=== PATIENT | female | born 1955 | race Caucasian/White ===

== ENCOUNTER → 2016-10-22 | Outpatient (CLI) | payer OTHER ==
--- NOTE | 2016-10-22 15:56 | REPMRS ---
Patient History The patient states she had a clinical breast exam in Patient is postmenopausal. Family history of pancreatic cancer in father. Digital Woman Screen Mammo: October 22, 2016 - Exam #: [id number] Bilateral CC and MLO view(s) were taken. Technologist: Racheal Galloway, Technologist No prior studies available for comparison. FINDINGS: There are scattered fibroglandular densities. There is no evidence of dominant mass, architectural distortion, or clustered microcalcification typical of malignancy. ASSESSMENT: BI-RADS/ACR category 1 mammogram. Negative. Recommendation Routine screening mammogram of both breasts in 1 year (for women over age 40). This mammogram was interpreted with the aid of an FDA-approved computer-aided dectection system. Electronically Signed By: Norberto Mayen MD 10/22/16 [id number]
== END ==
LOC: M WHC 14:53
PROVIDERS: ATTEND Nurse Practitioner Family
DX: Z12.31 Encounter for screening mammogram for malignant neoplasm of breast (principal)

== ENCOUNTER → 2016-10-22 | Outpatient (REF) | payer OTHER | LOC: M SFHCWAGY 15:01 | PROVIDERS: ATTEND Nurse Practitioner Family | DX: Z12.4 Encounter for screening for malignant neoplasm of cervix (principal); N95.2 Postmenopausal atrophic vaginitis ==

== ENCOUNTER → 2017-09-18 | Outpatient (CLI) | payer OTHER | LOC: M LRY 16:49 | DX: S99.922A Unspecified injury of left foot, initial encounter (principal); X58.XXXA Exposure to other specified factors, initial encounter; Y92.89 Other specified places as the place of occurrence of the external cause | CPT/HCPCS: 73630 ==

== ENCOUNTER → 2018-11-07 | Outpatient (CLI) | payer OTHER ==
--- NOTE | 2018-11-11 16:07 | SLEEPHOME ---
DATE OF PROCEDURE: 11/07/2018 ORDERED BY: Ryan Turpin Diagnostic home sleep testing was performed due to concern for the obstructive sleep apnea syndrome in this patient with a history of chronic fatigue. For testing a nocturnal T3 respiratory monitoring device was used. Continuous record was made of pulse, oxygen saturation, airflow, chest, abdominal strain and body position. 9 hours and 59 minutes of data were reviewed. All 9 hours and 59 minutes were marked as time in bed and during the interval marked time in bed, there were 341 respiratory events identified of 10 seconds in duration or greater for a respiratory event index of 34.1. The events were primarily obstructive. Baseline pulse rate 62 beats per minute, pulse rate ranged from 31 to 86. Baseline saturation was 92%; that fell as low as 86%. Testing was performed in both the supine and nonsupine positions. IMPRESSION: Abnormal home sleep testing with repetitive respiratory events and oxygen desaturations to 86% with a respiratory event index of 34.1 is consistent with the obstructive sleep apnea syndrome. RECOMMENDATIONS: The patient should be encouraged to undergo a formal sleep evaluation and in laboratory pressure titration.
== END ==
LOC: M SLEEP HO 11-05 10:53
PROVIDERS: ATTEND Physician Assistant Medical
DX: G47.33 Obstructive sleep apnea (adult) (pediatric) (principal); R06.83 Snoring; R53.82 Chronic fatigue, unspecified

== ENCOUNTER → 2019-05-26 | Outpatient (CLI) | payer OTHER ==
--- NOTE | 2019-05-26 13:02 | REPMRS ---
Patient History The patient states she had a clinical breast exam in 05/2019. Patient is postmenopausal. Family history of pancreatic cancer in father. No Hormone Replacement Therapy 3D TOMOSYNTHESIS WAS PERFORMED. [facility] lifetime risk for breast cancer is 8.0%. Digital Woman Screen Mammo: May 26, 2019 - Exam #: [id number] Bilateral CC and MLO view(s) were taken. Technologist: Maddy Garnica, Technologist Prior study comparison: October 22, 2016, digital woman screen mammo performed at [facility]. FINDINGS: There are scattered fibroglandular densities. There has been no change in the appearance of the mammogram from the prior studies. There is a mild amount of residual fibroglandular tissue which is fairly symmetric. There is no interval development of dominant mass, architectural distortion, or clustered microcalcification suggestive of malignancy. Assessment: BI-RADS/ACR category 1 mammogram. Negative Mammogram. Recommendation Routine screening mammogram in 1 year (for women over age 40). This mammogram was interpreted with the aid of an FDA-approved computer-aided dectection system. Electronically Signed By: Mitchell Olson MD 05/26/19 [id number]
== END ==
LOC: M WHC 10:36
PROVIDERS: ATTEND Nurse Practitioner Family
DX: Z12.31 Encounter for screening mammogram for malignant neoplasm of breast (principal)

== ENCOUNTER → 2019-05-26 | Outpatient (REF) | payer OTHER ==
[~2019-05-26] MED LIST: FURO40TA2; METO50TA7; NORC1TAB7 PO; SIMV20TA22
[2019-05-28 14:07] LABS: HPV HYBRID CAPTURE II Negative (Negative)
== END ==
LOC: M SFHCWAGY 11:14
PROVIDERS: ATTEND Nurse Practitioner Family
DX: Z12.4 Encounter for screening for malignant neoplasm of cervix (principal); N95.2 Postmenopausal atrophic vaginitis
CPT/HCPCS: 87624; G0123

== ENCOUNTER → 2019-06-11 | Outpatient (CLI) | payer OTHER ==
--- NOTE | 2019-06-12 04:24 | REP ---
Clinical: Pelvic pain . Technique: Transabdominal pelvic ultrasound followed by transvaginal examination for better evaluation of the endometrium and adnexa with color Doppler evaluation of the ovaries. Findings: Bladder is unremarkable and measures 9.2 x 7.9 x 6.4 cm . Normal anteverted uterus measures 5.7 x 2.4 x 4.0 cm . The endometrial complex measures 2.7 mm thickness excluding small amount of endocervical fluid. No discrete uterine or endometrial abnormalities are appreciated. Right ovary measures 6.4 x 4.8 x 7.6 cm and includes 6.4 x 4.8 x 7.4 centimeter complex septated lesion ; R I = 0.82 . Left ovary measures 2.6 x 1.0 x 1.0 cm ; R I = not visualized . No pelvic fluid or adnexal mass lesion . Impression: 1. essentially normal uterus and left ovary. 2. A complex septated cystic lesion dominates the right ovary. Correlation and follow up recommended. Electronically Signed by Karel Rasheed MD 06/12/2019 04:15 A
== END ==
LOC: M RAD 16:50
PROVIDERS: ATTEND Nurse Practitioner Family
DX: R10.2 Pelvic and perineal pain (principal); N83.8 Other noninflammatory disorders of ovary, fallopian tube and broad ligament

== ENCOUNTER → 2019-06-17 | Outpatient (REF) | payer OTHER | LOC: M SFHCWAGY 14:47 | PROVIDERS: ATTEND Nurse Practitioner Family | DX: N83.201 Unspecified ovarian cyst, right side (principal) ==

== ENCOUNTER 2019-08-17 15:14 | Emergency (ER) | payer OTHER ==
[~2019-08-17] VITALS: Ht 154.9 cm; Wt 72.7 kg
[2019-08-17] MEDS ORDERED: METO50TA7 (15:21)
[2019-08-17] MEDS ORDERED: SIMV20TA22 (15:21)
[2019-08-17] MEDS ORDERED: FURO40TA2 (15:21)
--- NOTE | 2019-08-17 16:13 | REP ---
Clinical: Trauma. Fall. Technique: AP, lateral, bilateral oblique views of the left wrist. Findings: Colles' fracture of the distal radial metaphysis appreciated with overlying soft tissue swelling. Widening to the scapholunate joint space likely related to current trauma. Further evaluation of the carpal bones is somewhat limited. Impression: 1. Colles' fracture of the distal radial metaphysis. 2. Widening to the scapholunate joint. Electronically Signed by Karel Rasheed MD 08/17/2019 04:05 P
[2019-08-17] MEDS ORDERED: ACETAMINOPH W/CODEINE #3 TAB UD PO ONE (16:15)
[2019-08-17] MEDS ORDERED: NORC1TAB7 PO (18:03)
[2019-08-17 18:12] VITALS: BP 130/78
--- NOTE | 2019-08-19 21:00 | CR ---
DATE OF CONSULTATION: 08/17/2019 CHIEF COMPLAINT: Left wrist pain. This is a pleasant 64-year-old female that had a slip and fall at home and landed on an outstretched arm and immediately appreciated sharp 10/10 left wrist pain that is made worse with any sort of lifting, pushing, pulling or movement, alleviated with rest, immobilization and pain medication. The patient states she is right hand dominant. Denies any pain elsewhere. Denies any fevers, chills, nausea or vomiting. Complete 10-system review was conducted, pertinent positives and negatives in the history of present illness (HPI). All other systems negative. PAST MEDICAL HISTORY: High blood pressure, hyperlipidemia. MEDICATIONS: Metoprolol, Lasix, simvastatin, and multivitamins. No known drug allergies. PAST SURGICAL HISTORY: (C) section times two and tubal ligation along with bilateral hip replacements. SOCIAL HISTORY: The patient lives at home with her . Denies any smoking and significant alcohol use. PHYSICAL EXAMINATION: The patient is awake, alert, and oriented, well-dressed, appropriate affect. Breathing in room air. Normocephalic, atraumatic. Right upper extremity: No tenderness to palpation. Full active range of motion of the shoulder, wrist, and elbow without any pain or discomfort. Skin is intact. Radial pulse 2+, regular rate. Sensation intact to light touch, superficial sensory branches of the radial nerve, median nerve, and ulnar nerve. Positive anterior interosseous nerve (AIN), posterior interosseous nerve (PIN), and ulnar motor nerve functions. Left upper extremity: Diffuse swelling and ecchymosis about the wrist. Tender to palpation globally about the wrist. Pain with range of motion of the wrist. No tenderness to palpation about the elbow or shoulder. Skin is intact. Radial pulse 2+, regular rate. Positive AIN, PIN, and ulnar motor functions. Sensation intact to light touch, superficial sensory branches of the radial nerve, median nerve, and ulnar nerve. Bilateral lower extremities: No tenderness to palpation about the hips, knees or ankles. Able to ambulate without pain. Positive extensor hallucis longus (EHL), patella, tibia and gastroc motor functions. Sensation intact to light tough in superficial, perineal, deep perineal, sural, saphenous, and fibular distributions. Skin is intact. Posterior tibial pulses 2+, regular rate. 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 DIAGNOSIS: Left acute distal radius intraarticular fracture with dorsal displacement and chronic left slack deformity. I discussed with the patient that while she does have a distal radius fracture, I do not believe her acute. I believe this is a chronic issue from years in the past. The patient can not recall an injury. Either way, I think this is an acceptable alignment at this time. We will continue trial nonoperative. We will see her later this week for repeat x-rays to see how the fracture is moving. We will discuss further options at that time. With regards to her slack deformity, we will continue to see how this affects her long-term once the fracture is healed. If there are continuing troubles at that time, we will address them then. At this time, the patient is placed in a thumb spica splint. We will see the patient in the office later this week with repeat films, work on pain control, nonweightbearing at the affected extremity. The patient expressed understanding and agreement at this time.
== END 2019-08-17 18:12 | disposition home or self-care (01) ==
LOC: M ED 15:14
DX: S52.532A Colles' fracture of left radius, initial encounter for closed fracture (principal); S63.512A Sprain of carpal joint of left wrist, initial encounter; W01.0XXA Fall on same level from slipping, tripping and stumbling without subsequent striking against object, initial encounter; Y92.009 Unspecified place in unspecified non-institutional (private) residence as the place of occurrence of the external cause; Y93.E3 Activity, vacuuming; I10 Essential (primary) hypertension; E78.5 Hyperlipidemia, unspecified; Z79.899 Other long term (current) drug therapy; Z98.84 Bariatric surgery status

== ENCOUNTER → 2019-09-21 | Outpatient (REF) | payer OTHER ==
[~2019-09-21] MED LIST changes: +D 202000 PO; +FOLTTAB9 PO; +MULT1TAB7 PO
[2019-09-21 14:26] LABS: BASO % 0.6 % (0.0-1.0); EOS # 0.2 10^3/uL (0.0-0.5); EOS % 3.3 % (0.0-3.0); HEMOGLOBIN 12.8 g/dl (12.0-15.5); LYMPH # 2.4 10^3/uL (1.5-5.0); LYMPH % 37.6 % (24.0-44.0); MEAN CORPUSCULAR HEMOGLOBIN 29.8 pg (27.0-33.0); MEAN CORPUSCULAR VOLUME 93.2 fl (80.0-96.0); MONO # 0.6 10^3/uL (0.0-0.8); MONO % 8.8 % (0.0-5.0); NEUTROPHILS # 3.1 10^3/uL (1.5-8.5); NEUTROPHILS % 49.5 % (36.0-66.0); PLATELET COUNT, AUTOMATED 213 10^3/uL (150-450); RED BLOOD COUNT 4.29 10^6/uL (4.00-5.40); WHITE BLOOD COUNT 6.4 10^3/uL (4.0-10.0)
[2019-09-21 14:40] LABS: BILIRUBIN,TOTAL 0.6 MG/DL (0.2-1.0); CALCIUM LEVEL 8.9 MG/DL (8.8-10.2); CHOLESTEROL RISK RATIO 2.753 (<5); CREATININE FOR GFR 1.02 MG/DL (0.55-1.30); FREE T4 1.09 NG/DL (0.76-1.46); GLOMERULAR FILTRATION RATE 57.7 (>45); POTASSIUM SERUM 3.9 MEQ/L (3.5-5.1); THYROID STIMULATING HORMONE 3.63 uIU/ML (0.358-3.740); TOTAL PROTEIN 7.7 GM/DL (6.4-8.2)
== END ==
LOC: M LAB REF 12:11
PROVIDERS: ATTEND Physician Assistant Medical
DX: R53.83 Other fatigue (principal); I10 Essential (primary) hypertension; E78.2 Mixed hyperlipidemia

== ENCOUNTER 2019-10-02 08:19 | Day surgery (SDC) | payer OTHER ==
[~2019-10-02] VITALS: Ht 154.9 cm; Wt 71.2 kg
[~2019-10-02 08:19] MED LIST changes: +LIDOCAINE 2% INJ 100 MG/5 ML SDV (FOR ANES.) As Ordered ONE; +propofoL 200 MG/20 ML VIAL As Ordered ONE
[2019-10-02] MEDS ORDERED: NS 1,000 ML IV ONE (09:15)
--- NOTE | 2019-10-02 10:59 | ROOR ---
Patient Name: Yina Wiley Procedure Date: 10/02/2019 10:24 AM Date of : 1955 Age: 64 Room: [facility] Gender: Female Note Status: Finalized Procedure: Colonoscopy Indications: Screening for colorectal malignant neoplasm Providers: Jair HARRIS MD Referring MD: LESLEY Delatorre Requesting Provider: Medicines: Monitored Anesthesia Care Complications: No immediate complications. Procedure: Pre-Anesthesia Assessment: - The heart rate, respiratory rate, oxygen saturations, blood pressure, adequacy of pulmonary ventilation, and response to care were monitored throughout the procedure. The Colonoscope was introduced through the anus and advanced to the cecum, identified by appendiceal orifice and ileocecal valve. The colonoscopy was performed without difficulty. The patient tolerated the procedure well. The quality of the bowel preparation was good. Findings: The perianal and digital rectal examinations were normal. The ileocecal valve was moderately lipomatous. This was biopsied with a cold forceps for histology. (fat seen on biopsy) Mild sigmoid diverticulosis and small internal hemorrhoids. The exam was otherwise without abnormality on direct and retroflexion views. Impression: - Lipomatous ileocecal valve. Biopsied. - Mild sigmoid diverticulosis and small internal hemorrhoids. - The examination was otherwise normal on direct and retroflexion views. Recommendation: - Await pathology results. - Telephone endoscopist for pathology results in 2 weeks. - Repeat colonoscopy for surveillance based on pathology results. Jair Harris MD Jair HARRIS MD 10/02/2019 10:59:28 AM Electronically signed by Jair HARRIS MD Number of Addenda: 0 Note Initiated On: 10/02/2019 10:24 AM Estimated Blood Loss: Estimated blood loss: none.
[2019-10-02 11:20] VITALS: BP 139/63
== END 2019-10-02 11:33 | disposition home or self-care (01) ==
LOC: M OPP 08:19
PROVIDERS: ATTEND Internal Medicine Gastroenterology
DX: Z12.11 Encounter for screening for malignant neoplasm of colon (principal); K63.89 Other specified diseases of intestine; K57.30 Diverticulosis of large intestine without perforation or abscess without bleeding; K64.8 Other hemorrhoids; Z79.899 Other long term (current) drug therapy; Z98.84 Bariatric surgery status

== ENCOUNTER 2019-10-29 05:48 | Day surgery (SDC) | payer OTHER ==
[~2019-10-29] VITALS: Ht 154.9 cm; Wt 71.7 kg
[~2019-10-29 05:48] MED LIST changes: +B-122500 PO; -FURO40TA2; +FURO40TA2 PO; -LIDOCAINE 2% INJ 100 MG/5 ML SDV (FOR ANES.) As Ordered ONE; -METO50TA7; +METO50TA7 PO; -SIMV20TA22; +SIMV20TA22 PO; +VITAD1000T PO; -propofoL 200 MG/20 ML VIAL As Ordered ONE
[2019-10-29] MEDS ORDERED: LIDOCAINE 1% MDV 20ML VIAL SQ PRN (06:00)
[2019-10-29] MEDS ORDERED: LR 1,000 ML IV ONE (06:00)
[2019-10-29] MEDS ORDERED: ROCURONIUM BROMIDE 50 MG/5 ML VIAL As Ordered ONE (07:57)
[2019-10-29] MEDS ORDERED: SUGAMMADEX SODIUM 500 MG/5 ML VIAL (BRIDION) As Ordered ONE (07:57)
[2019-10-29] MEDS ORDERED: propofoL 200 MG/20 ML VIAL As Ordered ONE (07:57)
[2019-10-29] MEDS ORDERED: dexameTHASONE 4 MG/ML 1ML VIAL (J1100) As Ordered ONE (07:57)
[2019-10-29] MEDS ORDERED: LIDOCAINE 2% INJ 100 MG/5 ML SDV (FOR ANES.) As Ordered ONE (07:57)
[2019-10-29] MEDS ORDERED: ONDANSETRON 4MG/2ML VIAL (J2405) As Ordered ONE (07:57)
[2019-10-29] MEDS ORDERED: MIDAZOLAM INJ 2 MG/2 ML VIAL (J2250) As Ordered ONE (07:57)
[2019-10-29] MEDS ORDERED: fentaNYL 250 MCG/5 ML INJECTION (J3010) As Ordered ONE (07:57)
[2019-10-29] MEDS ORDERED: ePHEDrine SULFATE 25 MG/5 ML(5MG/ML) SYRINGE As Ordered ONE (08:00)
[2019-10-29] MEDS ORDERED: PERCOCET 5MG/325MG TAB PO PRN (09:45)
[2019-10-29] MEDS ORDERED: METOCLOPRAMIDE INJ 10MG/2ML VIAL (J2765) IV PRN (09:45)
[2019-10-29] MEDS ORDERED: LR 1,000 ML IV SCH ×2 (09:45→10:46)
[2019-10-29] MEDS ORDERED: fentaNYL 100 MCG/2 ML INJECTION (J3010) IV PRN (09:45)
[2019-10-29] MEDS ORDERED: ONDANSETRON 4MG/2ML VIAL (J2405) IV PRN (09:45)
[2019-10-29] MEDS ORDERED: KETOROLAC 60 MG/2 ML VIAL (J1885) As Ordered ONE (10:07)
[2019-10-29] MEDS ORDERED: IBUPROFEN 600 MG TAB PO PRN (10:46)
[2019-10-29] MEDS ORDERED: NORCO, ANEXSIA 5/325MG TABLET (HYDROcodone/ACETAMINOPHEN) PO PRN (10:46)
[2019-10-29 10:50] VITALS: BP 170/82
--- NOTE | 2019-10-30 18:43 | RO ---
DATE OF PROCEDURE: 10/29/2019 PREOPERATIVE DIAGNOSIS: Right ovarian cyst, thickened endometrium by ultrasound. POSTOPERATIVE DIAGNOSIS: Right ovarian cyst, thickened endometrium by ultrasound. Atrophic endometrium; there were really no lesions there. PROCEDURE: Laparoscopic bilateral salpingo-oophorectomy, hysteroscopy, and dilation and curettage. SURGEON: Dr. Anna Morris CUT OFF SAWYER SHINGLE MILL: None. ANESTHESIA: General endotracheal anesthesia. SPECIMENS: We sent the ovaries, the tubal remnants, and I think there is a Falope ring in with that, as well as endometrial curettings. There is very scant return on those curettings, but as documented in the operative photos, that is because the endometrium was quite atrophic and there were no lesions. DESCRIPTION OF PROCEDURE: Yina was brought to the operating room where sufficient general endotracheal anesthesia was induced, and she was prepped, draped and positioned in the usual sterile fashion. A uterine manipulator was placed after the uterus was sounded to 5-1/2 in this 64-year-old woman. She does have a little bit of prolapse. This is not news to the patient or to me. The bladder was, of course, emptied and the uterine manipulator placed, and then attention was turned to the abdomen. A transverse semilunar incision was made below the umbilicus. Sharp and blunt dissection were continued through the subcutaneous tissues to the level of the rectus fascia, which was grasped with Nisreen clamps and incised under direct visualization, and elevated to wound so that we could transversely incise and secure it with the #0 Vicryl retention sutures, and then enter the peritoneum under direct visualization in an open laparoscopic technique. The Mai cannula was then placed and CO2 insufflation then begun. After adequate CO2 insufflation, the peritoneal cavity was visualized. There were normal shiny peritoneal surfaces throughout. There was no excrescence, ascites, nor exudate. As noted in the operative photos, there was a minimum of adhesions despite the patient's previous surgical history, and there was some scarring of the tubes and Falope ring visible but this is expected in this patient. Then, on the right ovary, there was an enlarged serous appearing cyst. Went ahead and placed the 5 mm right lower quadrant port so we could elevate the cyst away from the bowel and then used the Enseal bipolar dissector to carefully dissect through the infundibulopelvic ligament on the right side and the utero-ovarian suspensory ligament on the right side, and then the mesentery of the tube and ovary freeing that enlarged right ovary. We then turned our attention to the left side where she had an atrophic postmenopausal appearing ovary and this too was elevated away from the bowel, carefully controlled the blood supply at the infundibulopelvic ligament and then at the utero-ovarian suspensory ligament. And then carefully completed that dissection, freeing the ovary and tube, tubal remnant on the left side as well. Again, photos were taken to document the operative course. We then placed an Endo Catch bag through the umbilical port and transferred the camera to a 5 mm camera through the right lower quadrant port, and used the Endo Catch bag to scoop up these two ovaries and tubes. We then drained the ovary and cyst. It was septated, so two segments were drained with clear to yellowish serous fluid removed, very benign in appearance. Again, photos were taken to document this course. Then, after drainage of the cyst, we placed both ovaries with their attached tubal remnants into an Endo Catch bag and removed it out the umbilical port. Photos were then taken to confirm good hemostasis at the sites of dissection and the CO2 was allowed to escape the abdomen. There was good hemostasis even under low pressure. We then removed the instruments, allowed all the CO2 we could to escape the abdomen, and closed the fascial wound at the umbilicus with the #0 Vicryl retention sutures, and closed the skin at both wounds with #3-0 Vicryl in a subcuticular stitch. Dry sterile dressings were then applied. Attention was then turned to the pelvis. With the uterine manipulator removed, we placed the MyoSure hysteroscope and took several pictures of the atrophic endometrium. We had the MyoSure device set up with the expectation of something to sample, but there was such a degree of clear atrophy and no polyps, no lesions, no atypical appearance whatsoever, a tiny bit of bruising where the manipulator had been, but nothing else. And so simple curettage was carried out. I tried to do aggressive curettage; as expected, there was very scant return of tissue, but this is consistent with the atrophic appearance. And after the curettage and the hysteroscopy, the procedure was ended. Estimated blood loss for the whole procedure: About 5 mL. Fluid replacement: Crystalloid. Complications: None. Condition and Disposition: Yina tolerated the procedure well and was recovering in the recovery room in good condition.
== END 2019-10-29 11:13 | disposition home or self-care (01) ==
LOC: M SDC 05:48
PROVIDERS: ATTEND Obstetrics & Gynecology
DX: N83.201 Unspecified ovarian cyst, right side (principal); R93.89 Abnormal findings on diagnostic imaging of other specified body structures; N85.8 Other specified noninflammatory disorders of uterus; I10 Essential (primary) hypertension; E78.5 Hyperlipidemia, unspecified; Z79.899 Other long term (current) drug therapy; Z98.84 Bariatric surgery status
CPT/HCPCS: 58558; 58661; 88108; 88305; 88307; J1100; J1885; J2250; J2405; J3010

== ENCOUNTER → 2022-03-07 | Outpatient (CLI) | payer OTHER ==
[~2022-03-07] MED LIST changes: +VITA100093 PO; -VITAD1000T PO
== END ==
LOC: M SLEEP 20:00
PROVIDERS: ATTEND Nurse Practitioner Family
DX: G47.33 Obstructive sleep apnea (adult) (pediatric) (principal)

== ENCOUNTER → 2022-06-12 | Outpatient (CLI) | payer OTHER | LOC: M SLEEP 20:00 | PROVIDERS: ATTEND Nurse Practitioner Family | DX: G47.33 Obstructive sleep apnea (adult) (pediatric) (principal) ==

== ENCOUNTER → 2022-09-04 | Outpatient (CLI) | payer OTHER | LOC: M WHC 12:54 | PROVIDERS: ATTEND Obstetrics & Gynecology | DX: Z12.31 Encounter for screening mammogram for malignant neoplasm of breast (principal) ==

== ENCOUNTER 2023-09-19 06:36 | Inpatient (IN) | payer OTHER ==
[~2023-09-19] VITALS: Ht 154.9 cm; Wt 76.6 kg
[2023-09-19 07:10] LABS: BASO # 0.1 10^3/uL (0.0-0.2); BASO % 1.4 % (0.0-1.0); EOS # 0.5 10^3/uL (0.0-0.5); EOS % 10.8 % (0.0-3.0); HEMATOCRIT 38.2 % (36.0-47.0); HEMOGLOBIN 13.1 g/dl (12.0-15.5); LYMPH # 1.9 10^3/uL (1.5-5.0); LYMPH % 38.4 % (24.0-44.0); MEAN CORPUSCULAR HEMOGLOBIN 30.3 pg (27.0-33.0); MEAN CORPUSCULAR HGB CONC 34.3 g/dl (32.0-36.5); MEAN CORPUSCULAR VOLUME 88.4 fl (80.0-96.0); MONO # 0.4 10^3/uL (0.0-0.8); MONO % 8.8 % (2.0-8.0); NEUTROPHILS % 40.4 % (36.0-66.0); PLATELET COUNT, AUTOMATED 252 10^3/uL (150-450); RED BLOOD COUNT 4.32 10^6/uL (4.00-5.40); WHITE BLOOD COUNT 4.9 10^3/uL (4.0-10.0)
[2023-09-19 07:15] LABS: INR 1.07; PROTHROMBIN TIME 13.6 SECONDS (12.5-14.5)
[2023-09-19 07:16] LABS: PARTIAL THROMBOPLASTIN TIME 26.6 SECONDS (24.8-34.2)
[2023-09-19] MEDS: HYDROMORPHONE HCL 0.5 MG/ 0.5 ML SYRINGE IV PRN ×4 (08:06→19:37)
[2023-09-19] MEDS ORDERED: NS 1,000 ML IV SCH (08:10)
[2023-09-19] MEDS ORDERED: MED REC IN PROGRESS XX SCH (08:50)
[2023-09-19 08:54] LABS: BLOOD UREA NITROGEN 8 MG/DL (9-23); CALCIUM LEVEL 7.9 MG/DL (8.3-10.6); CARBON DIOXIDE LEVEL 25 MMOL/L (20-31); CHLORIDE LEVEL 100 MMOL/L (98-107); CREATININE FOR GFR 0.65 MG/DL (0.55-1.30); GLOMERULAR FILTRATION RATE > 60.0 (>39); GLUCOSE, FASTING 116 MG/DL (74-106); SODIUM LEVEL 133 MMOL/L (136-145)
[2023-09-19] MEDS ORDERED: SIMV40TA20 PO (09:45)
[2023-09-19] MEDS ORDERED: HOME MED LIST COMPLETE! XX SCH (09:55)
[2023-09-19 10:20] VITALS: BP 161/87; TEMP 97.2; O2SAT 97
[2023-09-19] MEDS: MORPHINE 4 MG/ML 1ML VIAL IV PRN ×2 (12:06→15:16)
[2023-09-19] MEDS: METOPROLOL TART 50 MG TAB PO SCH (14:30)
[2023-09-19 16:49] VITALS: BP 168/88; TEMP 98.8; O2SAT 96
[2023-09-19] MEDS ORDERED: KETAMINE HCL 200MG/20ML VIAL As Ordered ONE (17:54)
[2023-09-19] MEDS ORDERED: MIDAZOLAM INJ 2MG/2ML VIAL As Ordered ONE (17:54)
[2023-09-19] MEDS ORDERED: LABETALOL 100MG/20ML VIAL As Ordered ONE (17:54)
[2023-09-19] MEDS ORDERED: propofoL 200 MG/20 ML VIAL As Ordered ONE (17:54)
[2023-09-19] MEDS ORDERED: fentaNYL 100 MCG/2 ML INJECTION As Ordered ONE (17:54)
[2023-09-19] MEDS ORDERED: ONDANSETRON 4MG 2ML VIAL As Ordered ONE (17:54)
[2023-09-19] MEDS ORDERED: LIDOCAINE 2% 100MG/5ML SDV (FOR ANES.) As Ordered ONE (17:54)
[2023-09-19] MEDS ORDERED: oxyCODONE 5MG TAB PO PRN (17:55)
[2023-09-19] MEDS ORDERED: LR 1,000 ML IV SCH (17:55)
[2023-09-19] MEDS ORDERED: fentaNYL 100 MCG/2 ML INJECTION IV PRN (17:55)
[2023-09-19] MEDS ORDERED: ONDANSETRON 4MG 2ML VIAL IV PRN (17:55)
[2023-09-19] MEDS ORDERED: LABETALOL 100MG/20ML VIAL IV PRN (18:25)
[2023-09-19 20:39] VITALS: BP 137/79; TEMP 97.5; O2SAT 96
[2023-09-19] MEDS ORDERED: SIMVASTATIN 40 MG TAB PO SCH (21:00)
[2023-09-19 21:15] VITALS: BP 140/68; TEMP 97; O2SAT 97
[2023-09-19 22:12] VITALS: BP 141/62; TEMP 97.6; O2SAT 97
[2023-09-19 23:12] VITALS: BP 139/62; TEMP 97.8; O2SAT 97
[2023-09-20] VITALS (8 sets, daily range): BP systolic 123–166; BP diastolic 52–77; TEMP 97–97.8; O2SAT 95–98
[2023-09-20] MEDS: MORPHINE 4 MG/ML 1ML VIAL IV PRN ×2 (08:41→11:47)
[2023-09-20] MEDS: METOPROLOL TART 50 MG TAB PO SCH (08:43)
[2023-09-20] MEDS ORDERED: FUROSEMIDE 40 MG TAB PO SCH (09:00)
[2023-09-20] MEDS ORDERED: IBUP-1022 PO (09:21)
[2023-09-20] MEDS ORDERED: OXYC-517 PO (11:55)
[2023-09-20] MEDS ORDERED: oxyCODONE 5MG TAB PO ONE (12:15)
== END 2023-09-20 14:05 | disposition home or self-care (01) | DRG 561 ==
LOC: M ED 06:36 → M ED INP 08:24 → M MS5PR 10:10
PROVIDERS: ADMIT Internal Medicine Nephrology; ATTEND Internal Medicine Nephrology
PROC: 2W3KX1Z Immobilization of Left Finger using Splint (ICD-10-PCS; principal; 2023-09-19 16:00)
PROC: 0SSBXZZ Reposition Left Hip Joint, External Approach (ICD-10-PCS; 2023-09-20)
DX: T84.021A Dislocation of internal left hip prosthesis, initial encounter (principal); S62.325A Displaced fracture of shaft of fourth metacarpal bone, left hand, initial encounter for closed fracture; I10 Essential (primary) hypertension; E66.9 Obesity, unspecified; G47.33 Obstructive sleep apnea (adult) (pediatric); W01.0XXA Fall on same level from slipping, tripping and stumbling without subsequent striking against object, initial encounter; Y92.009 Unspecified place in unspecified non-institutional (private) residence as the place of occurrence of the external cause; E78.5 Hyperlipidemia, unspecified; Z98.84 Bariatric surgery status; Z90.79 Acquired absence of other genital organ(s); Z79.899 Other long term (current) drug therapy; Z20.822 Contact with and (suspected) exposure to COVID-19; Z96.643 Presence of artificial hip joint, bilateral; Z96.651 Presence of right artificial knee joint

== ENCOUNTER → 2023-10-14 | Outpatient (CLI) | payer OTHER ==
[~2023-10-14] MED LIST changes: +IBUP-1022 PO; +OXYC-517 PO; +SIMV40TA20 PO
== END ==
LOC: M SOG 08:04
PROVIDERS: ATTEND Physician Assistant
DX: S62.395A Other fracture of fourth metacarpal bone, left hand, initial encounter for closed fracture (principal); Y93.9 Activity, unspecified; Y92.9 Unspecified place or not applicable

== ENCOUNTER → 2023-10-28 | Outpatient (CLI) | payer OTHER | LOC: M SOG 07:53 | PROVIDERS: ATTEND Physician Assistant | DX: S62.395A Other fracture of fourth metacarpal bone, left hand, initial encounter for closed fracture (principal); X58.XXXA Exposure to other specified factors, initial encounter; Y92.9 Unspecified place or not applicable ==

== ENCOUNTER → 2023-11-12 | Outpatient (CLI) | payer OTHER ==
[2023-11-12 14:09] LABS: ALBUMIN 3.6 G/DL (3.2-5.2)
[2023-11-12 14:14] LABS: BASO # 0.1 10^3/uL (0.0-0.2); EOS # 0.1 10^3/uL (0.0-0.5); EOS % 2.8 % (0.0-3.0); HEMATOCRIT 38.3 % (36.0-47.0); HEMOGLOBIN 12.9 g/dl (12.0-15.5); LYMPH # 2.3 10^3/uL (1.5-5.0); LYMPH % 46.2 % (24.0-44.0); MEAN CORPUSCULAR HEMOGLOBIN 30.4 pg (27.0-33.0); MEAN CORPUSCULAR HGB CONC 33.7 g/dl (32.0-36.5); MEAN CORPUSCULAR VOLUME 90.1 fl (80.0-96.0); MONO # 0.6 10^3/uL (0.0-0.8); NEUTROPHILS # 1.9 10^3/uL (1.5-8.5); NEUTROPHILS % 37.8 % (36.0-66.0); PLATELET COUNT, AUTOMATED 244 10^3/uL (150-450); RED BLOOD COUNT 4.25 10^6/uL (4.00-5.40)
[2023-11-12 14:17] LABS: PERCENT SATURATION 22.8 % (13.2-45.0)
[2023-11-12 14:18] LABS: FERRITIN 46.6 NG/ML (7.3-270.7)
== END ==
LOC: M PLALAB 10:35
PROVIDERS: ATTEND Orthopaedic Surgery
DX: M16.12 Unilateral primary osteoarthritis, left hip (principal); M25.552 Pain in left hip

== ENCOUNTER → 2024-10-15 | Outpatient (CLI) | payer OTHER ==
[2024-10-15 14:39] LABS: HEMATOCRIT 39.4 % (36.0-47.0); HEMOGLOBIN 13.3 g/dl (12.0-15.5); MEAN CORPUSCULAR HEMOGLOBIN 31.7 pg (27.0-33.0); MEAN CORPUSCULAR HGB CONC 33.8 g/dl (32.0-36.5); MEAN CORPUSCULAR VOLUME 93.8 fl (80.0-96.0); PLATELET COUNT, AUTOMATED 294 10^3/uL (150-450); WHITE BLOOD COUNT 4.6 10^3/uL (4.0-10.0)
[2024-10-15 14:43] LABS: TOTAL IRON BINDING CAPACITY 318 UG/DL (250-425)
[2024-10-15 14:44] LABS: ALKALINE PHOSPHATASE 95 U/L (35-104); ALT/SGPT 22 U/L (7.0-40); AST/SGOT 22 U/L (<34); BILIRUBIN,TOTAL 0.6 MG/DL (0.3-1.2); BLOOD UREA NITROGEN 11 MG/DL (9-23); CALCIUM LEVEL 9.6 MG/DL (8.3-10.6); CARBON DIOXIDE LEVEL 26 MMOL/L (20-31); CHLORIDE LEVEL 104 MMOL/L (98-107); CHOLESTEROL LEVEL 185 MG/DL (<200); CHOLESTEROL RISK RATIO 2.44 (<5); CREATININE FOR GFR 0.75 MG/DL (0.55-1.30); GLOMERULAR FILTRATION RATE > 60.0 (>39); GLUCOSE, FASTING 86 MG/DL (74-106); HDL CHOLESTEROL 75.8 MG/DL (>40); IRON (FE) 85 UG/DL (50-170); NON-HDL-C 109.2 MG/DL; PERCENT SATURATION 26.7 % (13.2-45.0); SODIUM LEVEL 138 MMOL/L (136-145); TOTAL PROTEIN 7.4 G/DL (5.7-8.2); TRIGLYCERIDES LEVEL 91 MG/DL (<150)
[2024-10-15 14:48] LABS: FERRITIN 46.4 NG/ML (7.3-270.7)
[2024-10-15 14:49] LABS: TOTAL 25(OH) VITAMIN D 60.5 NG/ML (20.0-100.0)
== END ==
LOC: M PLALAB 10:04
PROVIDERS: ATTEND Nurse Practitioner Adult Health
DX: I10 Essential (primary) hypertension (principal)

== ENCOUNTER → 2025-07-20 | Outpatient (CLI) | payer OTHER ==
[~2025-07-20] MED LIST changes: -IBUP-1022 PO; +IBUP600T42 PO
== END ==
LOC: M WHC 12:14
PROVIDERS: ATTEND Obstetrics & Gynecology
DX: Z12.31 Encounter for screening mammogram for malignant neoplasm of breast (principal)